=== PATIENT | male | born 1995 | race Caucasian/White ===

== ENCOUNTER 2019-03-08 14:33 | Emergency (ER) | payer OTHER ==
[~2019-03-08] VITALS: Ht 188 cm; Wt 115.7 kg
[2019-03-08 14:53] VITALS: BP 128/90
--- NOTE | 2019-03-08 15:43 | NUR ---
PT AMBULATED TO BED 07.
[2019-03-08 15:47] VITALS: BP 128/90
--- NOTE | 2019-03-08 16:10 | NUR ---
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 TETANUS SHOT <1 YR HX--BACK PAIN RX---TYLENOL/
--- NOTE | 2019-03-08 16:45 | NUR ---
PT OPTED TO GO HOME WITHOUT SEEING DR BATISTA.
--- NOTE | 2019-03-08 16:46 | NUR ---
PATIENT LEFT WITHOUT BEING SEEN BY DR. BATISTA. NO FURTHER CARE PROVIDED FOR PATIENT.
--- NOTE | 2019-03-08 16:46 | NUR ---
PT STATED HE IS NOT WILLING TO WAIT FOR DR BATISTA. DR BATISTA MADE AWARE. PT ELOPED
== END 2019-03-08 16:46 | disposition left against medical advice (07) ==
LOC: MED 14:33
DX: S61.213A Laceration without foreign body of left middle finger without damage to nail, initial encounter (principal); Z53.21 Procedure and treatment not carried out due to patient leaving prior to being seen by health care provider; W26.8XXA Contact with other sharp object(s), not elsewhere classified, initial encounter; Y93.89 Activity, other specified; Y92.89 Other specified places as the place of occurrence of the external cause; Y99.8 Other external cause status